=== PATIENT | male | born 1995 | race Caucasian/White ===

== ENCOUNTER 2017-08-23 08:09 | Emergency (ER) | payer OTHER ==
[2017-08-23] MEDS ORDERED: MORPHINE SULFATE 4 MG/0.8 ML SYRINGE (INJ) IM ONE (08:20)
--- NOTE | 2017-08-23 08:43 | XR ---
EXAMINATION TYPE: XR foot complete LT DATE OF EXAM: 08/23/2017 CLINICAL HISTORY: Nail injury with pain TECHNIQUE: Frontal, lateral, and oblique images of the left foot are obtained. COMPARISON: None FINDINGS: Overlying boot material is present making evaluation suboptimal. There is intact nail dista l aspect of left foot near level of second proximal phalanx. It is likely there is no ossific involve ment or fracture as nail likely passes between the base of first and second proximal phalanx within s oft tissue. IMPRESSION: As above.
--- NOTE | 2017-08-23 08:43 | ED ---
Skin/Abscess/FB HPI <Juan Munoz - Last Filed: 08/23/17 09:39> - General Source: patient, RN notes reviewed Mode of arrival: wheelchair Limitations: no limitations <Tru Erickson - Last Filed: 08/23/17 10:29> - General Chief complaint: Skin/Abscess/Foreign Body Stated complaint: Nail in foot-[facility] Time Seen by Provider: 08/23/17 08:17 - History of Present Illness Initial comments: This is a 21-year-old male presents emergency Department chief complaint of nail through his left foot. Patient states that he shot a nail from a nail gun to his left foot through his boot. His last tetanus was within last 5 years. Patient states that he has no numbness or tingling at this time. Patient states he cannot get his boot off because the nail is through and through. ( Tru Erickson) - Related Data Previous Rx's Medication Instructions Recorded Acetaminophen-Codeine 300-30mg 1 tab PO Q4H PRN #12 tablet 08/23/17 [Tylenol #3] Ciprofloxacin HCl [Cipro] 500 mg PO Q12HR #20 tablet 08/23/17 Ibuprofen [Motrin] 600 mg PO Q8HR PRN #30 tab 08/23/17 Allergies Allergy/AdvReac Type Severity Reaction Status Date / Time Iodinated Contrast- Oral and AdvReac Rash/Hives Verified 08/23/17 08:15 IV Dye Review of Systems ROS Other: All systems not noted in ROS Statement are negative. <Juan Munoz - Last Filed: 08/23/17 09:39> ROS Other: All systems not noted in ROS Statement are negative. <Tru Erickson - Last Filed: 08/23/17 10:29> ROS Statement: Those systems with pertinent positive or pertinent negative responses have been documented in the HPI. Past Medical History Past Medical History: No Reported History History of Any Multi-Drug Resistant Organisms: None Reported Past Surgical History: No Surgical Hx Reported Past Psychological History: No Psychological Hx Reported Smoking Status: Current every day smoker Past Alcohol Use History: Occasional Past Drug Use History: None Reported <Tru Erickson - Last Filed: 08/23/17 10:29> General Exam Limitations: no limitations General appearance: alert, in no apparent distress Head exam: Present: atraumatic, normocephalic, normal inspection Respiratory exam: Present: normal lung sounds bilaterally. Absent: respiratory distress, wheezes, rales, rhonchi, stridor Cardiovascular Exam: Present: regular rate, normal rhythm, normal heart sounds. Absent: systolic murmur, diastolic murmur, rubs, gallop, clicks Extremities exam: Present: other (Left foot there is a blue on with a nail through the medial dorsal aspect that is angulated towards the lateral portion that exits to the plantar surface) Skin exam: Present: warm, dry, intact, normal color. Absent: rash <Tru Erickson - Last Filed: 08/23/17 10:29> Vital Signs 08/23/17 08/23/17 08/23/17 08:11 09:26 09:36 Temperature 97.1 F L Pulse Rate 108 H 75 87 Respiratory 18 16 16 Rate Blood Pressure 147/79 150/89 158/89 O2 Sat by Pulse 100 100 100 Oximetry Procedures - Procedural Sedation Procedural Sedation Start Time: 09:20 Procedural Sedation Stop Time: 09:45 Indications: other (Rule foreign body from flushed) ASA Class: I Preparation: youth nutritional monitor applied, pulse oximeter, capnometry used, supplemental O2 applied, suction/airway equipment at bedside IV Etomidate Dose (mgs): 15 Complications: none Patient Tolerated Procedure: well <Juan Munoz - Last Filed: 08/23/17 09:39> Medical Decision Making <Juan Munoz - Last Filed: 08/23/17 09:39> <Tru Erickson - Last Filed: 08/23/17 10:29> - Medical Decision Making 21-year-old male presented unresponsive for a nail in his left foot. Patient had nail removed under conscious sedation with Dr. Munoz. Patient had post- removal x-ray show no bony involvement. Patient was given Ancef. His tetanus is up-to-date within last 5 years. Patient will be discharged on antibiotics, anti-inflammatories and pain medication. Patient will follow-up for recheck and return for any worsening symptoms. (Tru Erickson) Disposition <Juan Munoz - Last Filed: 08/23/17 09:39> Is patient prescribed a controlled substance at d/c from ED?: No Time of Disposition: 10:29 <Tru Erickson - Last Filed: 08/23/17 10:29> Clinical Impression: Nail wound of foot, Puncture wound Disposition: HOME SELF-CARE Condition: Stable Instructions: Soft Tissue Foreign Body (ED), Puncture Wound (ED) Additional Instructions: Please return to the Emergency Department if symptoms worsen or any other concerns. Prescriptions: Acetaminophen-Codeine 300-30mg [Tylenol #3] 1 tab PO Q4H PRN #12 tablet PRN Reason: pain Ciprofloxacin HCl [Cipro] 500 mg PO Q12HR #20 tablet Ibuprofen [Motrin] 600 mg PO Q8HR PRN #30 tab PRN Reason: Pain Referrals: Nicholas Calvillo Jr, DO [Primary Care Provider] - 1-2 days Atif Yoon MD [STAFF PHYSICIAN] - 1-2 days
[2017-08-23] MEDS ORDERED: ETOMIDATE 2 MG/ML 10 ML VIAL IV STA (09:07)
[2017-08-23] MEDS ORDERED: ceFAZolin IN SWFI 2 GM/20 ML SYRINGE IVP STA (09:32)
--- NOTE | 2017-08-23 09:49 | XR ---
EXAMINATION TYPE: XR foot complete LT DATE OF EXAM: 08/23/2017 CLINICAL HISTORY: Foreign body removal TECHNIQUE: Frontal, lateral, and oblique images of the left foot are obtained. COMPARISON: Left foot x-ray earlier today. FINDINGS: There is interval removal of nail and overlying steel boot. There is no acute fracture/dis location evident in the left foot. The joint spaces in the left foot appear within normal limits. T he overlying soft tissue appears unremarkable without suspicious residual metallic foreign body. IMPRESSION: As above.
[2017-08-23] MEDS ORDERED: ONDANSETRON 4 MG/2 ML VIAL IVP STA (09:55)
[2017-08-23 10:43] VITALS: BP 140/72; PULSE 84; RESP 18; TEMP 98
== END 2017-08-23 10:43 | disposition home or self-care (01) ==
LOC: EC 08:09
DX: S91.342A Puncture wound with foreign body, left foot, initial encounter (principal); F17.200 Nicotine dependence, unspecified, uncomplicated; Z91.041 Radiographic dye allergy status; W45.0XXA Nail entering through skin, initial encounter; Y99.0 Civilian activity done for income or pay
CPT/HCPCS: 73630; 99283; 99152; 99153; 96374; 96375; 96372; J2405; J0690; J2270

== ENCOUNTER → 2019-01-27 | Outpatient (CLI) | payer MEDICAID ==
--- NOTE | 2019-01-29 19:37 | XR ---
EXAMINATION TYPE: XR chest 2V DATE OF EXAM: 01/27/2019 COMPARISON: Chest x-ray 2006. HISTORY: Cough. TECHNIQUE: Frontal and lateral views of the chest are obtained. FINDINGS: There is no focal air space opacity, pleural effusion, or pneumothorax seen. The cardiac silhouette size is within normal limits. The osseous structures are intact. IMPRESSION: No suspicious acute airspace opacity.
== END ==
LOC: RADXRMAIN 15:49
PROVIDERS: ATTEND Family Medicine
DX: R05 Cough (principal); R09.89 Other specified symptoms and signs involving the circulatory and respiratory systems
CPT/HCPCS: 71046

== ENCOUNTER 2020-08-21 18:47 | Emergency (ER) | payer MEDICAID, OTHER ==
[2020-08-21 19:10] VITALS: BP 141/75; PULSE 100; RESP 17; TEMP 98
[2020-08-21] MEDS ORDERED: LIDOCAINE 1% INJ 10MG/ML (20 ML MDV) SQ STA (19:34)
[2020-08-21] MEDS ORDERED: DIPH,PERTUS(ACELL)TETVAC-LF 0.5 ML VIAL IM ONE (19:34)
--- NOTE | 2020-08-21 19:38 | ED ---
General Adult HPI - General Chief complaint: Wound/Laceration Stated complaint: Thumb laceration Time Seen by Provider: 08/21/20 19:17 Source: patient, RN notes reviewed Mode of arrival: ambulatory Limitations: no limitations - History of Present Illness Initial comments: 24-year-old male presents to the emergency room for a chief clinic laceration. Patient reports that he was pushing a car and he accidentally cut his hand on the fender. States it is the back of his right hand as well as the thumb. Patient denies any weakness of the fingers. Patient denies any difficulty moving his fingers. Patient is not up-to-date on tetanus. Patient denies any other complaints.Patient has no other complaints at this time including shortness of breath, chest pain, abdominal pain, nausea or vomiting, headache, or visual changes. - Related Data Previous Rx's Medication Instructions Recorded Acetaminophen-Codeine 300-30mg 1 tab PO Q4H PRN #12 tablet 08/23/17 [Tylenol #3] Ciprofloxacin HCl [Cipro] 500 mg PO Q12HR #20 tablet 08/23/17 Ibuprofen [Motrin] 600 mg PO Q8HR PRN #30 tab 08/23/17 Cephalexin [Keflex] 500 mg PO BID 5 Days #20 cap 08/21/20 Allergies Allergy/AdvReac Type Severity Reaction Status Date / Time Iodinated Contrast Media AdvReac Rash/Hives Verified 08/21/20 19:10 [Iodinated Contrast- Oral and IV Dye] Review of Systems ROS Statement: Those systems with pertinent positive or pertinent negative responses have been documented in the HPI. ROS Other: All systems not noted in ROS Statement are negative. Past Medical History Past Medical History: No Reported History History of Any Multi-Drug Resistant Organisms: None Reported Past Surgical History: No Surgical Hx Reported Past Psychological History: No Psychological Hx Reported Smoking Status: Current every day smoker, V[employer] Past Alcohol Use History: Rare Past Drug Use History: None Reported General Exam Limitations: no limitations General appearance: alert, in no apparent distress Head exam: Present: atraumatic Eye exam: Present: normal appearance Neck exam: Present: normal inspection, full ROM Respiratory exam: Present: normal lung sounds bilaterally. Absent: respiratory distress, wheezes Cardiovascular Exam: Present: regular rate, normal rhythm, normal heart sounds Extremities exam: Present: full ROM (Full range of motion of all digits of the right hand according the first and second digit.), normal capillary refill (Capillary refill less than 2 seconds in all digits of the right hand. Radial pulse 2+.), other (Patient does have a 3 cm laceration on the dorsal aspect of the hand as well as a 2 cm laceration on the dorsal aspect of the right thumb proximal phalanx. No evidence of tendon or deep structure involvement) Course Vital Signs 08/21/20 19:07 Temperature 98.0 F Pulse Rate 100 Respiratory 17 Rate Blood Pressure 141/75 O2 Sat by Pulse 96 Oximetry Procedures - Laceration Laceration #1 Consent Obtained: verbal consent Indication: laceration Site: hand Size (cm): 3 Description: linear Depth: simple, single layer Anesthetic Used: lidocaine 1% Anesthesia Technique: local infiltration Amount (mls): 4 Pre-repair: wound explored, irrigated extensively (With saline pressure irrigation) Type of Sutures: nylon Size of Sutures: 4-0 Number of Sutures: 5 Technique: simple, interrupted Patient Tolerated Procedure: well, no complications Laceration #2 Consent Obtained: verbal consent Indication: laceration Site: other (Thumb) Size (cm): 2 Depth: simple, single layer Anesthetic Used: lidocaine 1% Anesthesia Technique: local infiltration Amount (mls): 2 Pre-repair: wound explored, irrigated extensively (with saline pressure irrigation) Size of Sutures: 4-0 Number of Sutures: 3 Technique: simple, interrupted Patient Tolerated Procedure: well, no complications Medical Decision Making - Medical Decision Making Patient presents for laceration to the right thumb and hand. There is no evid ence for tendon involvement. Patient has full range of motion and strength of all digits. No deep structure involvement with aeration. Full range of motion of all digits. Capillary refill less than 2 seconds in all digits. X-ray report and films were reviewed, no evidence of foreign body or bone involvement. Wound was irrigated thoroughly and repaired using simple interrupted sutures. Tetanus is updated. Care parameters discussed. Return parameters discussed. Mother is a nurse at bedside as well and will help with care. Disposition Clinical Impression: Laceration Disposition: HOME SELF-CARE Condition: Good Instructions (If sedation given, give patient instructions): Laceration (ED) Additional Instructions: Apply antibiotic ointment twice daily as needed. Keep clean with a gentle soap and water. Please monitor for signs of infection such as spreading or streaking redness, drainage, or fever and return if these occur. Return to the emergency room for any worsening symptoms. Return in 10 days for suture removal. Prescriptions: Cephalexin [Keflex] 500 mg PO BID 5 Days #20 cap Is patient prescribed a controlled substance at d/c from ED?: No Referrals: Roscoe Tran DO [Primary Care Provider] - 1-2 days Time of Disposition: 20:43
--- NOTE | 2020-08-21 20:02 | XR ---
EXAMINATION TYPE: XR hand complete RT DATE OF EXAM: 08/21/2020 COMPARISON: NONE HISTORY: Laceration TECHNIQUE: 3 views FINDINGS: The metacarpals are intact. I see no fracture nor dislocation. Joint spaces are normal. The re are no erosions. IMPRESSION: Negative right hand exam. No evidence of a foreign body.
[2020-08-21] MEDS ORDERED: ERYTHROMYCIN 5 MG/GM OPHTH OINT 1 GM TUBE BOTH EYES STA (20:44)
[2020-08-21] MEDS ORDERED: CEPHALEXIN 500MG STARTER PACK 4 CAP BTL PO STA (20:44)
[2020-08-21] MEDS ORDERED: BACITRACIN OINT 1 EACH PACKET TOPICAL STA (20:54)
== END 2020-08-21 21:05 | disposition home or self-care (01) ==
LOC: EC 18:47
DX: S61.011A Laceration without foreign body of right thumb without damage to nail, initial encounter (principal); Z23 Encounter for immunization; F17.200 Nicotine dependence, unspecified, uncomplicated; W23.1XXA Caught, crushed, jammed, or pinched between stationary objects, initial encounter; Y93.89 Activity, other specified
CPT/HCPCS: 73130; 90715; 99283; 12002; 90471; 96372; J2001